=== PATIENT | male | born 1995 | race Two or more races ===

== ENCOUNTER 2017-05-31 08:02 | Emergency (ER) | payer MEDICAID ==
[~2017-05-31] VITALS: Ht 170.2 cm; Wt 63.5 kg
[2017-05-31 08:06] VITALS: BP 145/88
== END 2017-05-31 10:16 | disposition home or self-care (01) ==
LOC: ER 08:02
DX: R07.89 Other chest pain (principal); F15.10 Other stimulant abuse, uncomplicated; F12.10 Cannabis abuse, uncomplicated; F17.210 Nicotine dependence, cigarettes, uncomplicated
CPT/HCPCS: 71020; 93005

== ENCOUNTER 2017-09-02 19:18 | Emergency (ER) | payer MEDICAID ==
[~2017-09-02] VITALS: Ht 170.2 cm; Wt 63.5 kg
[2017-09-02 19:57] VITALS: BP 134/80
== END 2017-09-02 21:57 | disposition home or self-care (01) ==
LOC: ER 19:18
DX: S46.912A Strain of unspecified muscle, fascia and tendon at shoulder and upper arm level, left arm, initial encounter (principal); X50.0XXA Overexertion from strenuous movement or load, initial encounter; Y93.89 Activity, other specified; Y92.89 Other specified places as the place of occurrence of the external cause; Y99.8 Other external cause status
CPT/HCPCS: 73080

== ENCOUNTER 2018-01-09 09:45 | Emergency (ER) | payer MEDICAID ==
[~2018-01-09] VITALS: Ht 170.2 cm; Wt 65.8 kg
[2018-01-09 09:55] VITALS: BP 136/78
[2018-01-09] MEDS ORDERED: TETANUS-DIPTH-ACEL PERTUSSIS 0.5ML SYRG IM ONE (10:45)
== END 2018-01-09 11:14 | disposition home or self-care (01) ==
LOC: ER 09:45
DX: S91.331A Puncture wound without foreign body, right foot, initial encounter (principal); X58.XXXA Exposure to other specified factors, initial encounter; Y93.89 Activity, other specified; Y99.8 Other external cause status; Y92.89 Other specified places as the place of occurrence of the external cause
CPT/HCPCS: 90471; 90715